=== PATIENT | male | born 1945 | race Caucasian/White ===

== ENCOUNTER 2020-05-27 05:52 | Inpatient (IN) | payer OTHER, BC ==
[2020-05-20 13:55] VITALS: BMI 34.0
--- OUTSIDE RECORDS SUMMARY | 2020-05-27 05:55 | XMS ---
:1945 Author Organization [facility] Support Name Relationship Address Phone RE Unavailable Unavailable Unavailable BRIANNE BEVERLY SPOUSE [address] [place] [address] Re-disclosure Warning The records that you are about to access may contain information from federally- assisted alcohol or drug abuse programs. If such information is present, then the following federally mandated warning applies: This information has been disclosed to you from records protected by federal confidentiality rules (42 CFR part 2). The federal rules prohibit you from making any further disclosure of this information unless further disclosure is expressly permitted by the written consent of the person to whom it pertains or as otherwise permitted by 42 CFR part 2. A general authorization for the release of medical or other information is NOT sufficient for this purpose. The Federal rules restrict any use of the information to criminally investigate or prosecute any alcohol or drug abuse patient.The records that you are about to access may contain highly sensitive health information, the redisclosure of which is protected by Article 27-F of the [facility] Public Health law. If you continue you may haveaccess to information: Regarding HIV / AIDS; Provided by facilities licensed or operated by the [facility] Office of Mental Health; or Provided by the [facility] Office for People With Developmental Disabilities. If such information is present, then the following [facility] mandated warning applies: This information has been disclosed to you from confidential records which are protected by state law. State law prohibits you from making any further disclosure of this information without the specific written consent of the person to whom it pertains, or as otherwise permitted by law. Any unauthorized further disclosure in violation of state law may result in a fine or fdc sentence or both. A general authorization for the release of medical or other information is NOT sufficient authorization for further disclosure. Insurance Providers Payer name Policy type Policy ID Covered Covered green party's Policy P celeste / Coverage green party ID relationship to Chu Inf ormation type chu GHI PPO [id number] SP [id number] BC PPO [id number] SP [id number] MEDICARE [id number] SP [id number] Results ID Date Data Source [id number] 05/23/2020 11:50:00 AM EDT [facility] Name Value Range Interpretation Description Data Sup porting Code Source(s) Document(s ) SARS [facility] coronavirus 2 RNA This lab was ordered by [facility] and reported by [facility]. Procedure
[2020-05-27] MEDS ORDERED: MIDAZOLAM HCL 2 MG/2 ML SINGLE DOSE VIAL ONE (06:37)
[2020-05-27] MEDS ORDERED: BUPIVACAINE LIPOSOME/PF (EXPAREL) 266 MG/20 ML VIAL ONE (06:38)
[2020-05-27] MEDS ORDERED: SODIUM CHLORIDE 0.9% P/F 10 ML VIAL IJ ONE ×3 (06:38→12:29)
[2020-05-27] MEDS ORDERED: LOCK ITEM NR ONE (07:26)
--- NOTE | 2020-05-27 07:44 | HP ---
History & Physical Update - History History: No Change - Physical Physical: No Change - Assessment Assessment: No Change - Plan Plan: No Change
[2020-05-27] MEDS ORDERED: BUPIVACAINE HCL/PF 0.5% (5MG/ML) 10 ML VIAL ONE (07:52)
[2020-05-27] MEDS ORDERED: PROPOFOL 20 ML ONE ×11 (07:55→11:51)
[2020-05-27] MEDS ORDERED: CEFAZOLIN 2 GM in DEXTROSE 5%-WATER - 100 ML IVPB ONE (08:00)
[2020-05-27] MEDS ORDERED: TRANEXAMIC ACID 1000 MG/10 ML VIAL ONE (08:27)
[2020-05-27] MEDS ORDERED: ceFAZolin SODIUM 1 GM VIAL ONE ×3 (08:27→12:29)
[2020-05-27] MEDS ORDERED: VANCOMYCIN 1,000 MG VIAL (RESTRICTED TO ID ONLY) ONE (08:27)
[2020-05-27] MEDS ORDERED: ePHEDrine SULFATE 50 MG/1 ML AMPULE ONE (08:44)
[2020-05-27] MEDS ORDERED: MAGNESIUM HYDROX 2400MG/30ML ORAL SUSPENSION 30 ML CUP PO PRN (12:51)
[2020-05-27] MEDS ORDERED: ONDANSETRON 4 MG/2 ML VIAL IVPUSH PRN ×2 (12:51→12:59)
[2020-05-27] MEDS ORDERED: MAG HYDROX/AL HYDROX/SIMETH 30 ML UNIT-DOSE CUP PO PRN (12:51)
[2020-05-27] MEDS ORDERED: ONDANSETRON 4 MG/2 ML VIAL ONE (12:58)
[2020-05-27] MEDS ORDERED: LACTATED RINGERS SOLUTION 1,000 ML IV SCH ×2 (13:00)
[2020-05-27] MEDS ORDERED: oxyCODONE HCL 5 MG TABLET ONE (13:48)
[2020-05-27] MEDS ORDERED: ACETAMINOPHEN 325 MG TABLET (FP) ONE (13:48)
[2020-05-27] MEDS: oxyCODONE HCL 5 MG TABLET PO PRN ×4 (14:15→21:31)
[2020-05-27] MEDS: ACETAMINOPHEN 325 MG TABLET (FP) PO SCH ×2 (15:00→21:31)
--- NOTE | 2020-05-27 15:05 | HP ---
CHIEF COMPLAINT: Right knee pain HISTORY OF PRESENT ILLNESS: 74 year-old male with a PMH significant for HTN, HLD, BPH, bilateral knee r eplacements, now s/p revision of right total knee replacement today with Dr. Emmanuel Montero. Recent Travel: No PAST MEDICAL HISTORY: Hypertension Hyperlipidemia BPH PAST SURGICAL HISTORY: Right total knee replacement Left total knee replacement Social History: Smoking: curent smoker Alcohol: occasional Drugs: denies Family history: reviewed and non-contributory Allergies No Known Drug Allergies Allergy (Verified 05/20/20 11:02) HOME MEDICATIONS: Home Medications Medication Instructions Recorded Lisinopril [Prinivil] 20 mg PO DAILY 05/20/20 Oxybutynin Chloride [Ditropan Xl] 10 mg PO DAILY 05/20/20 Simvastatin [Zocor -] 40 mg PO DAILY 05/20/20 Tamsulosin HCl 0.4 mg PO DAILY 05/20/20 REVIEW OF SYSTEMS CONSTITUTIONAL: Absent: fever, chills, diaphoresis, generalized weakness, malaise, loss of appetite, weight change HEENT: Absent: rhinorrhea, nasal congestion, throat pain, throat swelling, difficulty swallowing, mouth swelling, ear pain, eye pain, visual changes CARDIOVASCULAR: Absent: chest pain, syncope, palpitations, irregular heart rate, lightheadedness, peripheral edema RESPIRATORY: Absent: cough, shortness of breath, dyspnea with exertion, orthopnea, wheezing, stridor, hemoptysis GASTROINTESTINAL: Absent: abdominal pain, abdominal distension, nausea, vomiting, diarrhea, constipation, melena, hematochezia GENITOURINARY: Absent: dysuria, frequency, urgency, hesitancy, hematuria, flank pain, genital pain MUSCULOSKELETAL: Absent: myalgia, arthralgia, joint swelling, back pain, neck pain SKIN: Absent: rash, itching, pallor HEMATOLOGIC/IMMUNOLOGIC: Absent: easy bleeding, easy bruising, lymphadenopathy, frequent infections ENDOCRINE: Absent: unexplained weight gain, unexplained weight loss, heat intolerance, cold intolerance NEUROLOGIC: Absent: headache, focal weakness or paresthesias, dizziness, unsteady gait, seizure, mental status changes, bladder or bowel incontinence PSYCHIATRIC: Absent: anxiety, depression, suicidal or homicidal ideation, hallucinations. PHYSICAL EXAMINATION Vital Signs - 24 hr 05/27/20 05/27/20 05/27/20 06:28 06:31 12:55 Temperature 98.2 F 97.5 F L Pulse Rate 66 87 Respiratory 18 21 H Rate Blood Pressure 142/86 140/77 O2 Sat by Pulse 95 95 96 Oximetry (%) 05/27/20 05/27/20 05/27/20 13:00 13:05 13:10 Temperature Pulse Rate 80 86 85 Respiratory 14 16 14 Rate Blood Pressure 120/77 136/75 150/91 O2 Sat by Pulse 96 99 99 Oximetry (%) 05/27/20 05/27/20 05/27/20 13:25 13:40 13:55 Temperature 97.5 F L Pulse Rate 85 97 H 79 Respiratory 11 16 17 Rate Blood Pressure 160/85 144/86 163/91 O2 Sat by Pulse 100 100 100 Oximetry (%) 05/27/20 14:15 Temperature 97.5 F L Pulse Rate 85 Respiratory 17 Rate Blood Pressure 153/91 O2 Sat by Pulse 100 Oximetry (%) GENERAL: Awake, alert, and fully oriented, in no acute distress. HEAD: Normal with no signs of trauma. EYES: Pupils equal, round and reactive to light, extraocular movements intact, sclera anicteric, conjunctiva clear. No lid lag. LUNGS: Breath sounds equal, clear to auscultation bilaterally. No wheezes, and no crackles. No accessory muscle use. HEART: Regular rate and rhythm, normal S1 and S2 ABDOMEN: Soft, nontender, not distended MUSCULOSKELETAL: Normal range of motion at all joints. No bony deformities or tenderness. No CVA tenderness. UPPER EXTREMITIES: 2+ pulses, warm, well-perfused. No cyanosis. No clubbing. No peripheral edema. RLE: Leg immobilizer; ice pack; Hemovac drain; +flex/extend toes, sensory intact NEUROLOGICAL: Cranial nerves II-XII intact. Normal speech. Pre op Hgb 13.5 BUN 20 Cr 1.03 Intra op Vanc 1g x 1; cefazolin 2g x 1 EBL 100mL LR 2L ASSESSMENT/PLAN: 74 year-old male with a PMH significant for HTN, HLD, BPH, bilateral knee replacements, 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 Revision right total knee replacement --POD #0 --perioperative antibiotics per surgery --pain management per surgery --ASA 81mg BID --protonix --bowel regimen --incentive spirometry --Hemovac drain, monitor output Hypertension --continue lisinopril Hyperlipidemia --continue statin BPH --continue Tamsulosin FEN Fluids: LR@125mL/hr Electrolytes: replete as indicated Nutrition: regular diet DVT prophylaxis: OOB, ambulation, SCDs, TEDs, ASA 81mg BID Physical therapy Dispo: continues to require inpatient care. Full code. Family Medical History Family History: As Documented Visit type - Medication Review Med list reviewed for High Risk Meds patients 65 and older: Yes - Emergency Visit Emergency Visit: No - New Patient This patient is new to me today: Yes Date on this admission: 05/27/20 - Critical Care Critical Care patient: No
[2020-05-27] MEDS ORDERED: LISINOPRIL 20 MG TABLET PO ONE (15:45)
--- NOTE | 2020-05-27 16:59 | OP ---
Operative Note - Note: Operative Date: 05/27/20 Pre-Operative Diagnosis: Right knee arthrofibrosis with implant loosening Operation: Revision Right total knee replacement, Right ORIF tibia, Right tubercle osteotomy Post-Operative Diagnosis: Same as Pre-op Surgeon: Emmanuel Montero Management Engineer: Jose Rios Anesthesiologist/CIVIL MANAGER: David Chaparro Anesthesia: Spinal Operative Report Dictated: Yes
--- NOTE | 2020-05-27 17:02 | SURG ---
Surgery Supervisor [employer] Note Supervisor [employer]: Jose Rios PA-C Date of Service: 05/27/20 Diagnosis: Right knee arthrofibrosis with implant loosening Procedure: Revision Right total knee replacement, Right ORIF tibia, Right tubercle osteotomy I was present for the entirety of the operative procedure. For further detail, please refer to operative report. Visit type - Case Type Case Type: Scheduled - Emergency Emergency Visit: No - New patient This patient is new to me today: Yes Date on this admission: 05/27/20 - Critical Care Critical Care patient: No
[2020-05-27] MEDS: CEFAZOLIN 2 GM/D5W 2 GM/50 ML ML IVPB SCH (17:47)
[2020-05-27] MEDS: ATORVASTATIN CA 20 MG TABLET (FP) PO SCH (21:32)
[2020-05-27] MEDS: ASPIRIN 81 MG CHEWABLE TABLETS PO SCH (21:32)
[2020-05-27] MEDS: SENNOSIDES/DOCUSATE COMBO (SENNA PLUS) TABLET (UD) PO SCH (21:32)
[2020-05-28] MEDS: oxyCODONE HCL 5 MG TABLET PO PRN ×5 (00:05→18:10)
[2020-05-28] MEDS: CEFAZOLIN 2 GM/D5W 2 GM/50 ML ML IVPB SCH (02:03)
[2020-05-28] MEDS: ACETAMINOPHEN 325 MG TABLET (FP) PO SCH ×4 (02:05→21:07)
--- NOTE | 2020-05-28 08:45 | PN ---
Progress Note (short form) - Note Progress Note: Surgery: Pt with complaints of pain at operative site. No CP or SOB. Voiding OK. No nausea. Vital Signs Period Temp Pulse Resp BP Sys/Monterroso Pulse Ox Last 24 Hr 97.5 F-99.2 F 79-102 11-21 120-163/67-92 95-100 ITALIA: 440ml bloody GEN: OOB to chair, NAD LE: 5 dorsi/platnar/EHL b/l. No calf tenderness or swelling b/l RLE: dressing c/d/i CBC, BMP 05/28/20 10:43 05/28/20 10:43 A/p: 74 yo male s/p R TKR-revision POD#1 DIet as tolerated Right knee immoblizer in place, partial weight bearing on the right DVT ppx with aspirin 81 mg BID Oral pain medications as needed D/w Dr. Montero
--- NOTE | 2020-05-28 08:50 | OP ---
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 OPERATION PREFORMED: 1. Tibial tubercle osteotomy. 2. Explantation of femur and tibia. 3. Revision total knee arthroplasty. 4. Extensive synovectomy. 5. Open reduction internal fixation of fractured proximal tibia. ANESTHESIA: Conscious sedation with spinal anesthesia and peripheral nerve block. ANTIBIOTICS GIVEN: Two g of Ancef, 1 g vancomycin, 1 g Kefzol given at the time of release of the tourniquet 2-1/2 hours and then again at the end of the procedure approximately an hour later another 1 g of Ancef was given. BLOOD LOSS: Following release of tourniquet approximately 300 mL. INDICATIONS: For ongoing persistent and increasingly stiff knee with what appeared to be oversized femoral component and possible loosening. Workup for infection was negative preop. OPERATION DETAILS: Patient correctly identified, brought in the operating room. Right lower extremity was prepped and draped in the routine manner with Betadine scrub solution, wiped off with alcohol, DuraPrep applied. The timeout was called. Midline incision was utilized through the old original incision, was extended proximally and distally. The dissection was taken through the skin to the fascia. A split through the longitudinal quadriceps tendon was performed. This was curved around the medial parapatellar region of the patella onto the medial aspect of the tibia. It was impossible to move this patella laterally in any way. We elected to go ahead with a tibial tubercle osteotomy avoiding a rectus snip. Even a rectus snip would not have helped this. We did extend the proximal incision higher up into the thigh, but this proved futile in being able to achieve extrication and explantation of the tibia, femur. A tibial tubercle was performed with an oscillating saw to about 10 cm below the proximal end of the tibia. The shape of the tibial osteotomy was in a coronal shape leaving a good sliver of bone combined with a small oscillating saw distally 90 degrees to the shaft of the tibia to facilitate opening of the tibial tubercle and facilitating capsulization of the patella. This itself even proved difficult. Once all the soft tissues around the proximal tibia were released to gain access to the knee, the knee appeared to be solidly inserted. Using oscillating saw the bone at the cement implant interface working through all the way around the tibia using offset osteotomes and a Gigli saw as well on the tibia and using a tibial tubercle osteotomy to free the long stem that had been inserted before and solidly seated with cement, the tibial component was eventually extricated with no damage to bone and minimal bone loss. All cement was removed. The femur itself was seated well and using the small oscillating saw working all the way around the medial and lateral side of the tibia, the superior aspect of the tibia and then seating a Gigli saw in the superior aspect of the interface between the bone and cement, the Gigli saw disconnected the cement from bone in a coronal fashion along the femur all the way down to the femoral pegs. The posterior and medial, lateral component of each condyle was then loosened by breaking the cement interface, using an offset osteotome. The femoral component was then extricated without any difficulty and no bone loss. The flexion/extension gaps were appreciated to be about almost even and equal at about 16, possibly 18 mm. A starter drill was inserted into the femur. Reaming of the femur was to size 16. Reaming of the tibia itself was also to size 16 and the jig systems applied to the well-seated tibial component and femoral components. The tibia itself was prepared. It was then noted that there was a crack along the lateral side of the tibial plateau extending all the way to the tibial shaft. The entire lateral condyle could easily have broken off and on that basis we went in and held this with a tenaculum clamp and a single 50-mm screw seated in a lag fashion to augment fixation of the proximal tibia, thus performing an open reduction internal fixation of the tibial fracture. The femoral component measured size 3 and the tibial universal base plate size 4 of the Qwite system. A 10-mm augment on the tibia was applied to: 1) avoid any contact with the screw that had been seated, and 2) to close down the flexion/extension gap on the tibial side. Proximalization of the tibial component was opted for because of the increase in the flexion gap which was to facilitate flexion. Once this had been performed and after all extraneous cement was removed, the femoral component was recut using a femoral jig system to receive this appropriate size 3 femur. The wider box was utilized, this for a TS polyethylene which was opted for. Extensive soft tissue debridement was performed. This included soft tissue around the patella as well as around the proximal medial aspect in the gutters of the femur, tibia and also the back of the knee. There was extensive fibrous tissue. This clearly was microscopically not infected and it was opted not to send a frozen section as the preop blood tests were all negative for any infection as well as what we found at operation. The sizing of the tibial components was size 3 femur with a 16 x 100 fluted stem. The tibia was a size 4 with a 10-mm buildup block as well as a 100-mm size x 16 fluted stem. Once the bone beds were thoroughly lavaged with pulse lavage, cementing was in 1 stage of the definitive implants. All extraneous cement was removed after it cured. The positioning and seating of the femoral component and tibial components was excellent. A size 16-mm polyethylene insert was inserted for a TS-constrained condylar type articulation. At that point the tibial tubercle was reduced into position and held solidly with 3 lag effect AO screws. These were 3.5 screws. A 3.5 drill bit was for the lag component and 2.7-mm drill bit for the adherence of the screw distally. Solid fixation achieved. Patella tracking was well maintained. Closure: Parapatellar incision with quadriceps tendon with 1 Vicryl, subcutaneous 1 and 2-0 Vicryl, skin hi. Drainage: One-inch Hemovac x1. Operation was extremely difficult. We elected to let down the tourniquet at 2-1/2 hours. A dose of Ancef was given just prior to release of the tourniquet. The bleeders were diathermized. A bandage was applied and Esmarch reapplied to them to hold the bandage in position not tightly, but to hold it in position appropriately while allowed 10 minutes to proceed. This was then removed. The tourniquet reapplied. Blood clot washed out and the tissues appeared healthy and well maintained. A repeat application of the tourniquet for another approximately 40 to 45 minutes was performed. The knee postop x-rays were excellent. Clinically the knee was in full extension, full flexion and with a range of movement of 0 to about 110 degrees. Ligaments were in the coronal, sagittal plane as normal. MD BAYRON Lora/[id number]
--- NOTE | 2020-05-28 09:21 | PN ---
Physical Exam: SUBJECTIVE: Patient seen and examined oob to chair. OBJECTIVE: Vital Signs Period Temp Pulse Resp BP Sys/Monterroso Pulse Ox Last 24 Hr 97.5 F-99.2 F 79-101 11-21 120-163/75-92 95-100 GENERAL: Awake, alert, and fully oriented, in no acute distress. LUNGS: Breath sounds equal, clear to auscultation bilaterally. No wheezes, and no crackles. No accessory muscle use. HEART: Regular rate and rhythm, normal S1 and S2 ABDOMEN: Soft, nontender, not distended UPPER EXTREMITIES: 2+ pulses, warm, well-perfused. No cyanosis. No clubbing. No peripheral edema. RLE: Leg immobilizer; ice pack; Hemovac drain; +flex/extend toes, sensory intact NEUROLOGICAL: Cranial nerves II-XII intact. Normal speech. Active Medications Generic Name Dose Route Start Last Admin Trade Name Freq PRN Reason Stop Dose Admin Acetaminophen 650 mg 05/27/20 15:00 05/28/20 02:05 Tylenol - PO 05/30/20 14:59 650 mg Q6H DUGLAS Administration Al Hydroxide/Mg Hydroxide 30 ml 05/27/20 12:51 Mylanta Oral Suspension - PO Q4H PRN DYSPEPSIA Aspirin 81 mg 05/27/20 22:00 05/27/20 21:32 Asa - PO 81 mg BID DUGLAS Administration Atorvastatin Calcium 20 mg 05/27/20 22:00 05/27/20 21:32 Lipitor - PO 20 mg HS DUGLAS Administration Lisinopril 20 mg 05/28/20 10:00 Prinivil PO DAILY DUGLAS Magnesium Hydroxide 30 ml 05/27/20 12:51 Milk Of Magnesia - PO PRN PRN CONSTIPATION Multivitamins/Minerals/Vitamin C 1 tab 05/28/20 10:00 Tab-A-Vit - PO DAILY DUGLAS Ondansetron HCl 4 mg 05/27/20 12:51 Zofran Injection IVPUSH Q6H PRN NAUSEA Oxycodone HCl 5 mg 05/27/20 13:00 05/27/20 14:15 Roxicodone - PO 5 mg Q3H PRN Administration PAIN LEVEL 1-5 Oxycodone HCl 10 mg 05/27/20 13:00 05/28/20 06:51 Roxicodone - PO 10 mg Q3H PRN Administration PAIN LEVEL 6-10 Oxycodone HCl 10 mg 05/28/20 10:00 Oxycontin - PO BID DUGLAS Pantoprazole Sodium 40 mg 05/28/20 10:00 Protonix - PO DAILY [facility] Senna/Docusate Sodium 2 tablet 05/27/20 22:00 05/27/20 21:32 Pericolace - PO 2 tablet BID DUGLAS Administration Solifenacin 5 mg 05/28/20 10:00 Vesicare - PO DAILY DUGLAS Tamsulosin HCl 0.4 mg 05/28/20 10:00 Flomax - PO DAILY [facility] ASSESSMENT/PLAN: Pre op Hgb 13.5 BUN 20 Cr 1.03 Intra op Vanc 1g x 1; cefazolin 2g x 1 EBL 100mL LR 2L ASSESSMENT/PLAN: 74 year-old male with a PMH significant for HTN, HLD, BPH, bilateral knee replacements, 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 Revision right total knee replacement --POD #1 --perioperative antibiotics complete --pain management per surgery --ASA 81mg BID --protonix --bowel regimen --incentive spirometry --Hemovac drain, monitor output Hypertension --continue lisinopril Hyperlipidemia --continue statin BPH --continue Tamsulosin FEN Fluids: PO intake adequate Electrolytes: replete as indicated Nutrition: regular diet DVT prophylaxis: OOB, ambulation, SCDs, TEDs, ASA 81mg BID Physical therapy Dispo: continues to require inpatient care. Full code. Visit type - Emergency Visit Emergency Visit: No - New Patient This patient is new to me today: No - Critical Care Critical Care patient: No - Medication Review Med list reviewed for High Risk Meds patients 65 and older: Yes
[2020-05-28] MEDS: MULTIVITAMINS (DAILY MVI) TABLET (FP) PO SCH (09:35)
[2020-05-28] MEDS: PANTOPRAZOLE 40 MG TABLET PO SCH (09:35)
[2020-05-28] MEDS: SENNOSIDES/DOCUSATE COMBO (SENNA PLUS) TABLET (UD) PO SCH ×2 (09:35→21:08)
[2020-05-28] MEDS: TAMSULOSIN HCL 0.4 MG CAP PO SCH (09:35)
[2020-05-28] MEDS: ASPIRIN 81 MG CHEWABLE TABLETS PO SCH ×2 (09:35→21:07)
[2020-05-28] MEDS: SOLIFENACIN SUCCINATE 5 MG TAB PO SCH (09:35)
[2020-05-28] MEDS: LISINOPRIL 20 MG TABLET PO SCH (09:35)
[2020-05-28] MEDS: oxyCODONE HCL 10 MG SUSTAINED ACTING TABLET PO SCH ×2 (09:36→21:06)
[2020-05-28] MEDS ORDERED: PATIENT'S OWN MEDICATION (NON-FORMULARY) (Simvastatin 40 MG) PO SCH (10:00)
--- NOTE | 2020-05-28 10:17 | PN ---
Progress Note (short form) - Note Progress Note: ANESTHESIA POSTOP 74 YO MALE POD #1 S/P REVISION KNEE ARTHROPLASTY Patient sitting in chair playing games on handheld device. Pain adequately controlled. Tolerating PO. VSS, Afebrile Continue current care. Encouraged IS and active participation in PT. No anesthetic complications.
[2020-05-28 11:14] LABS: HEMATOCRIT 34.9 % (35.4-49); HEMOGLOBIN 11.6 GM/dl (11.7-16.9); MCHC 33.3 g/dl (32.0-35.9); MEAN CELL VOLUME 87.1 fl (80-96); MEAN PLT VOLUME 7.8 fl (7.5-11.1); PLATELET COUNT 402 K/MM3 (134-434); RDW 13.5 % (11.9-15.9); WHITE BLOOD COUNT 14.1 K/mm3 (4.0-10.8)
[2020-05-28 13:21] LABS: CALCIUM 8.5 mg/dl (8.5-10); CREATININE 0.8 mg/dl (0.55-1.3); POTASSIUM 3.7 mmol/L (3.5-5.1)
[2020-05-28] MEDS: ATORVASTATIN CA 20 MG TABLET (FP) PO SCH (21:07)
[2020-05-29] MEDS: ACETAMINOPHEN 325 MG TABLET (FP) PO SCH ×4 (04:00→22:00)
[2020-05-29] MEDS: oxyCODONE HCL 5 MG TABLET PO PRN ×3 (06:09→19:00)
[2020-05-29 08:15] LABS: HEMATOCRIT 28.4 % (35.4-49); HEMOGLOBIN 9.5 GM/dl (11.7-16.9); MCH 29.2 pg (25.7-33.7); MCHC 33.5 g/dl (32.0-35.9); MEAN PLT VOLUME 8.5 fl (7.5-11.1); PLATELET COUNT 306 K/MM3 (134-434); RBC 3.26 M/mm3 (4.00-5.60); RDW 13.2 % (11.9-15.9); WHITE BLOOD COUNT 10.8 K/mm3 (4.0-10.8)
[2020-05-29] MEDS: TAMSULOSIN HCL 0.4 MG CAP PO SCH (09:20)
[2020-05-29] MEDS: PANTOPRAZOLE 40 MG TABLET PO SCH (09:20)
[2020-05-29] MEDS: MULTIVITAMINS (DAILY MVI) TABLET (FP) PO SCH (09:20)
[2020-05-29] MEDS: LISINOPRIL 20 MG TABLET PO SCH (09:20)
[2020-05-29] MEDS: SENNOSIDES/DOCUSATE COMBO (SENNA PLUS) TABLET (UD) PO SCH ×2 (09:20→22:18)
[2020-05-29] MEDS: ASPIRIN 81 MG CHEWABLE TABLETS PO SCH ×2 (09:20→22:18)
[2020-05-29] MEDS: SOLIFENACIN SUCCINATE 5 MG TAB PO SCH (09:21)
[2020-05-29] MEDS: oxyCODONE HCL 10 MG SUSTAINED ACTING TABLET PO SCH ×2 (09:21→22:18)
--- NOTE | 2020-05-29 09:24 | DS ---
Physical Exam: SUBJECTIVE: Patient seen and examined OBJECTIVE: Vital Signs Period Temp Pulse Resp BP Sys/Monterroso Pulse Ox Last 24 Hr 98.7 F-99.6 F 94-107 18-18 104-127/50-67 95-97 PHYSICAL EXAM GENERAL: Awake, alert, and fully oriented, in no acute distress. LUNGS: Breath sounds equal, clear to auscultation bilaterally. No wheezes, and no crackles. No accessory muscle use. HEART: Regular rate and rhythm, normal S1 and S2 ABDOMEN: Soft, nontender, not distended UPPER EXTREMITIES: 2+ pulses, warm, well-perfused. No cyanosis. No clubbing. No peripheral edema. RLE: Leg immobilizer; +flex/extend toes, sensory intact, walking with PT NEUROLOGICAL: Cranial nerves II-XII intact. Normal speech. 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 Revision right total knee replacement --perioperative antibiotics complete --pain management per surgery --ASA 81mg BID x 6 weeks Hypertension --continued lisinopril Hyperlipidemia --continued statin BPH --continued Tamsulosin Minutes to complete discharge: 35 Discharge Summary Problems reviewed: Yes Reason For Visit: PRESENCE OF RIGHT ARTIFICIAL KNEE JOINT Condition: Improved - Instructions Diet, Activity, Other Instructions: Dr. Montero Discharge Instructions for Knee Replacement Post Operative Instructions Physical activity Physical Therapist will come to your home for the first 5 days. You will be set up with outpatient PT at your first post-operative visit. Use assistive devices for ambulation at all times. Weight bearing as tolerated on your surgical side. Do not put pillow under knee. May put pillow under heel. Wound care Leave your surgical dressing in place. Do not change the dressing until seen by your surgeon in the office. No baths or showers. Do not submerge your incision. Do not apply any ointments or lotions to your incision. Please call the office if your dressing is soiled/dirty or is falling off. Apply Graduated Compression Stockings (TEDS) to both lower extremities - remove daily for hygiene ONLY. Diet There are no dietary restrictions. Eat healthy, high-fiber foods. Drink 6 to 8 glasses of liquid each day. This will assist in keeping your bowels are regular. Pain management Any pain prescription medication ordered should be taken as prescribed for moderate to severe pain. Do not take additional Tylenol while taking Percocet. Take Aspirin 81 mg two times a day for a total of 6 weeks to prevent blood clots. Call Dr. Montero for any of the following: Severe pain not relieved by medication Fever of 101 or higher Excessive bleeding or drainage on dressing Inability to urinate If you experience chest pain or shortness of breath, please seek emergency care immediately. Please call the office at to confirm your post-op appointment for the week following surgery. Referrals: Emmanuel Montero MD [Staff Physician] - Disposition: HOME HEALTH CARE - Home Medications Comprehensive Discharge Medication List: Ambulatory Orders Lisinopril [Prinivil] 20 mg PO DAILY 05/20/20 Oxybutynin Chloride [Ditropan Xl] 10 mg PO DAILY 05/20/20 Simvastatin [Zocor -] 40 mg PO DAILY 05/20/20 Tamsulosin HCl 0.4 mg PO DAILY 05/20/20 Aspirin [ASA -] 81 mg PO BID tab.chew 05/29/20 Oxycodone HCl/Acetaminophen [Percocet 5-325 mg Tablet] 1 tab PO Q6H 5 Days #20 tablet MDD 4 05/29/20 This patient is new to me today: No Emergency Visit: No Critical Care patient: No - Discharge Referral Referred to [facility] No
[2020-05-29] MEDS: ATORVASTATIN CA 20 MG TABLET (FP) PO SCH (22:19)
[2020-05-30] MEDS: ACETAMINOPHEN 325 MG TABLET (FP) PO SCH ×2 (02:36→08:56)
[2020-05-30] MEDS: oxyCODONE HCL 5 MG TABLET PO PRN (08:56)
[2020-05-30] MEDS: oxyCODONE HCL 10 MG SUSTAINED ACTING TABLET PO SCH (10:06)
[2020-05-30] MEDS: LISINOPRIL 20 MG TABLET PO SCH (10:07)
[2020-05-30] MEDS: TAMSULOSIN HCL 0.4 MG CAP PO SCH (10:07)
[2020-05-30] MEDS: SOLIFENACIN SUCCINATE 5 MG TAB PO SCH (10:07)
[2020-05-30] MEDS: PANTOPRAZOLE 40 MG TABLET PO SCH (10:07)
[2020-05-30] MEDS: SENNOSIDES/DOCUSATE COMBO (SENNA PLUS) TABLET (UD) PO SCH (10:07)
[2020-05-30] MEDS: MULTIVITAMINS (DAILY MVI) TABLET (FP) PO SCH (10:07)
[2020-05-30] MEDS: ASPIRIN 81 MG CHEWABLE TABLETS PO SCH (10:07)
[2020-05-30 10:14] VITALS: BP 127/56; PULSE 93; TEMP 98.5
--- NOTE | 2020-05-30 12:20 | PN ---
Physical Exam: SUBJECTIVE: Patient seen and examined OBJECTIVE: Vital Signs Period Temp Pulse Resp BP Sys/Monterroso Pulse Ox Last 24 Hr 98.4 F-98.9 F 84-105 16-18 117-149/56-74 94-100 GENERAL: Awake, alert, and fully oriented, in no acute distress. LUNGS: Breath sounds equal, clear to auscultation bilaterally. No wheezes, and no crackles. No accessory muscle use. HEART: Regular rate and rhythm, normal S1 and S2 ABDOMEN: Soft, nontender, not distended UPPER EXTREMITIES: 2+ pulses, warm, well-perfused. No cyanosis. No clubbing. No peripheral edema. RLE: Leg immobilizer; ice pack; Hemovac drain; +flex/extend toes, sensory intact NEUROLOGICAL: Cranial nerves II-XII intact. Normal speech. Active Medications Generic Name Dose Route Start Last Admin Trade Name Freq PRN Reason Stop Dose Admin Acetaminophen 650 mg 05/27/20 15:00 05/30/20 08:56 Tylenol - PO 05/30/20 14:59 650 mg Q6H DUGLAS Administration Al Hydroxide/Mg Hydroxide 30 ml 05/27/20 12:51 Mylanta Oral Suspension - PO Q4H PRN DYSPEPSIA Aspirin 81 mg 05/27/20 22:00 05/30/20 10:07 Asa - PO 81 mg BID DUGLAS Administration Atorvastatin Calcium 20 mg 05/27/20 22:00 05/29/20 22:19 Lipitor - PO 20 mg HS DUGLAS Administration Lisinopril 20 mg 05/28/20 10:00 05/30/20 10:07 Prinivil PO 20 mg DAILY DUGLAS Administration Magnesium Hydroxide 30 ml 05/27/20 12:51 05/29/20 18:58 Milk Of Magnesia - PO 30 ml PRN PRN Administration CONSTIPATION Multivitamins/Minerals/Vitamin C 1 tab 05/28/20 10:00 05/30/20 10:07 Tab-A-Vit - PO 1 tab DAILY DUGLAS Administration Ondansetron HCl 4 mg 05/27/20 12:51 Zofran Injection IVPUSH Q6H PRN NAUSEA Oxycodone HCl 5 mg 05/27/20 13:00 05/27/20 14:15 Roxicodone - PO 5 mg Q3H PRN Administration PAIN LEVEL 1-5 Oxycodone HCl 10 mg 05/27/20 13:00 05/30/20 08:56 Roxicodone - PO 10 mg Q3H PRN Administration PAIN LEVEL 6-10 Oxycodone HCl 10 mg 05/28/20 10:00 05/30/20 10:06 Oxycontin - PO 10 mg BID DUGLAS Administration Pantoprazole Sodium 40 mg 05/28/20 10:00 05/30/20 10:07 Protonix - PO 40 mg DAILY DUGLAS Administration Senna/Docusate Sodium 2 tablet 05/27/20 22:00 05/30/20 10:07 Pericolace - PO 2 tablet BID DUGLAS Administration Solifenacin 5 mg 05/28/20 10:00 05/30/20 10:07 Vesicare - PO 5 mg DAILY DUGLAS Administration Tamsulosin HCl 0.4 mg 05/28/20 10:00 05/30/20 10:07 Flomax - PO 0.4 mg DAILY DUGLAS Administration Pre op Hgb 13.5 BUN 20 Cr 1.03 Intra op Vanc 1g x 1; cefazolin 2g x 1 EBL 100mL LR 2L ASSESSMENT/PLAN: 74 year-old male with a PMH significant for HTN, HLD, BPH, bilateral knee replacements, 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 Revision right total knee replacement --POD #2 --perioperative antibiotics complete --pain management per surgery --ASA 81mg BID --protonix --bowel regimen --incentive spirometry --Hemovac drain, monitor output Hypertension --continue lisinopril Hyperlipidemia --continue statin BPH --continue Tamsulosin FEN Fluids: PO intake adequate Electrolytes: replete as indicated Nutrition: regular diet DVT prophylaxis: OOB, ambulation, SCDs, TEDs, ASA 81mg BID Physical therapy Dispo: continues to require inpatient care. Full code. Visit type - Emergency Visit Emergency Visit: No - New Patient This patient is new to me today: No - Critical Care Critical Care patient: No - Medication Review Med list reviewed for High Risk Meds patients 65 and older: Yes
--- NOTE | 2020-06-01 16:10 | PATH ---
Surgical Pathology Report Patient Name: JOHN MALLORY Med. Rec. #: [id number] /Age/Gender: 1945 (Age: 74) / M Account: [id number] Location: [facility] MED-SURG Taken: 05/27/2020 Received: 05/27/2020 Reported: 06/01/2020 Physicians: Emmanuel Montero M.D. Specimen(s) Received RIGHT KNEE HARDWARE Clinical History Total knee replacement Final Diagnosis HARDWARE, KNEE, RIGHT, REMOVAL: SURGICAL HARDWARE. MACROSCOPIC DIAGNOSIS. Electronically Signed Marisela Cormier M.D. Gross Description Received fresh labeled "hardware right knee," are 3 white plastic and mueller metallic portions of hardware ranging from 7.0-7.4 cm in greatest dimension, consistent with knee hardware. No soft tissue is present. No sections are submitted, gross only. /05/29/2020 saudi05/29/2020
== END 2020-05-30 14:28 | disposition home or self-care (01) | DRG 468 ==
LOC: FM/S 05:52
PROVIDERS: ADMIT Orthopaedic Surgery Orthopaedic Surgery of the Spine; ATTEND Nurse Practitioner Acute Care
PROC: 0SBC0ZZ Excision of Right Knee Joint, Open Approach (ICD-10-PCS; 2020-05-27)
PROC: 0QSG04Z Reposition Right Tibia with Internal Fixation Device, Open Approach (ICD-10-PCS; principal; 2020-05-27 08:56)
PROC: 0SPC0JZ Removal of Synthetic Substitute from Right Knee Joint, Open Approach (ICD-10-PCS; 2020-05-27 08:56)
PROC: 0SRC0J9 Replacement of Right Knee Joint with Synthetic Substitute, Cemented, Open Approach (ICD-10-PCS; 2020-05-27 08:56)
DX: T84.032A Mechanical loosening of internal right knee prosthetic joint, initial encounter (principal); M97.11XA Periprosthetic fracture around internal prosthetic right knee joint, initial encounter; E78.5 Hyperlipidemia, unspecified; N40.0 Benign prostatic hyperplasia without lower urinary tract symptoms; I10 Essential (primary) hypertension; M24.661 Ankylosis, right knee; Y83.8 Other surgical procedures as the cause of abnormal reaction of the patient, or of later complication, without mention of misadventure at the time of the procedure; Z96.653 Presence of artificial knee joint, bilateral
CPT/HCPCS: 36415; 73560-TC-RT-FY; 74018-TC-FY; 80048; 85027; 88300-TC; 94760; 97010-GP; 97116-GP; 97162-GP

== ENCOUNTER 2020-10-23 08:17 | Day surgery (SDC) | payer OTHER, BC ==
[2020-10-19 17:28] VITALS: BMI 34.5
[2020-10-23] MEDS ORDERED: PROPOFOL 20 ML ONE (10:02)
[2020-10-23] MEDS ORDERED: SUCCINYLCHOLINE CHLORIDE 200 MG/10 ML SYRINGE ONE (10:03)
[2020-10-23 11:14] VITALS: TEMP 97.9
[2020-10-23] MEDS ORDERED: oxyCODONE HCL 5 MG TABLET PO PRN (11:51)
[2020-10-23] MEDS ORDERED: ONDANSETRON 4 MG/2 ML VIAL IVPUSH PRN (11:51)
[2020-10-23 12:13] VITALS: BP 138/81; PULSE 65
== END 2020-10-23 12:58 | disposition home or self-care (01) ==
LOC: FASU 08:17
PROVIDERS: ATTEND Orthopaedic Surgery Orthopaedic Surgery of the Spine
PROC: 0SNCXZZ Release Right Knee Joint, External Approach (ICD-10-PCS; principal; 2020-10-23 10:17)
DX: M24.661 Ankylosis, right knee (principal); Z96.651 Presence of right artificial knee joint
CPT/HCPCS: 94760

== ENCOUNTER 2020-12-25 07:49 | Day surgery (SDC) | payer OTHER, BC ==
[2020-12-23 13:24] VITALS: BMI 34.0
[2020-12-25] MEDS ORDERED: PROPOFOL 20 ML ONE (10:46)
[2020-12-25] MEDS ORDERED: MIDAZOLAM HCL 2 MG/2 ML SINGLE DOSE VIAL ONE (10:49)
[2020-12-25] MEDS ORDERED: oxyCODONE HCL 5 MG TABLET ONE (11:48)
[2020-12-25 12:47] VITALS: BP 152/74; PULSE 68
[2020-12-25 14:00] VITALS: TEMP 97.3
== END 2020-12-25 12:40 | disposition home or self-care (01) ==
LOC: FASU 07:49
PROVIDERS: ATTEND Orthopaedic Surgery Orthopaedic Surgery of the Spine
PROC: 0SNCXZZ Release Right Knee Joint, External Approach (ICD-10-PCS; principal; 2020-12-25 10:50)
DX: M24.661 Ankylosis, right knee (principal)
CPT/HCPCS: 94760

== ENCOUNTER 2021-02-19 06:19 | Day surgery (SDC) | payer OTHER, BC ==
[2021-02-16 17:15] VITALS: BMI 33.6
[2021-02-19] MEDS ORDERED: MIDAZOLAM HCL 2 MG/2 ML SINGLE DOSE VIAL ONE (07:46)
[2021-02-19] MEDS ORDERED: PROPOFOL 20 ML ONE (07:46)
[2021-02-19] MEDS ORDERED: LIDOCAINE HCL/PF 2% SDV 5ML VIAL ONE (07:47)
[2021-02-19] MEDS ORDERED: KETOROLAC TROMETHAMINE 30 MG/1 ML VIAL ONE (07:57)
[2021-02-19] MEDS ORDERED: ONDANSETRON 4 MG/2 ML VIAL IVPUSH PRN (08:12)
[2021-02-19] MEDS ORDERED: ACETAMINOPHEN 500 MG TABLET (FP) PO PRN (08:12)
[2021-02-19] MEDS ORDERED: PROMETHAZINE HCL 25 MG/1 ML VIAL IVPB PRN (08:12)
[2021-02-19] MEDS ORDERED: LACTATED RINGERS SOLUTION 1,000 ML IV SCH (08:15)
[2021-02-19] MEDS ORDERED: IBUPROFEN 600 MG TABLET (FP) PO PRN (08:16)
[2021-02-19] MEDS ORDERED: traZODone HCL 50 MG TABLET (FP) PO PRN (08:16)
[2021-02-19 08:37] VITALS: TEMP 97.7
[2021-02-19] MEDS ORDERED: PATIENT'S OWN MEDICATION (NON-FORMULARY) (Simvastatin 40 MG Tablet) PO SCH (10:00)
[2021-02-19] MEDS ORDERED: PATIENT'S OWN MEDICATION (NON-FORMULARY) (Oxybutynin Chloride [Ditropan Xl] 10 MG Tab.Er.2 PO SCH (10:00)
[2021-02-19] MEDS ORDERED: ASPIRIN 81 MG CHEWABLE TABLETS PO SCH ×2 (10:00)
[2021-02-19] MEDS ORDERED: SOLIFENACIN SUCCINATE 5 MG TAB PO SCH (10:00)
[2021-02-19 10:11] VITALS: BP 120/74; PULSE 66
[2021-02-19] MEDS ORDERED: TAMSULOSIN HCL 0.4 MG CAP PO SCH (18:30)
[2021-02-19] MEDS ORDERED: ATORVASTATIN CA 20 MG TABLET (FP) PO SCH (22:00)
[2021-02-20] MEDS ORDERED: LISINOPRIL 20 MG TABLET PO SCH (10:00)
== END 2021-02-19 10:15 | disposition home or self-care (01) ==
LOC: FASU 06:19
PROVIDERS: ATTEND Orthopaedic Surgery Orthopaedic Surgery of the Spine
PROC: 0SNCXZZ Release Right Knee Joint, External Approach (ICD-10-PCS; principal; 2021-02-19 07:59)
DX: M24.661 Ankylosis, right knee (principal); Z96.651 Presence of right artificial knee joint
CPT/HCPCS: 94760